=== PATIENT | female | born 1995 ===

== ENCOUNTER 2024-02-01 09:06 | Outpatient (CLI) | payer OTHER, MEDICAID, SELFPAY | END 2024-02-01 09:07 | disposition home or self-care (01) | LOC: NFLDREF 02-20 11:17 | PROVIDERS: Visit Provider Advanced Practice Midwife | DX: Z34.83 Encounter for supervision of other normal pregnancy, third trimester (principal); Z67.40 Type O blood, Rh positive | CPT/HCPCS: 86592; 86762; 86850; 86900; 86901 ==

== ENCOUNTER 2024-02-15 09:59 | Outpatient (CLI) | payer OTHER, MEDICAID, SELFPAY | END 2024-02-15 10:00 | disposition home or self-care (01) | LOC: NFLDREF 10:00 | PROVIDERS: Visit Provider Advanced Practice Midwife | DX: Z34.83 Encounter for supervision of other normal pregnancy, third trimester (principal) | CPT/HCPCS: 86803 ==

== ENCOUNTER 2024-02-28 09:00 | Outpatient (CLI) | payer OTHER, SELFPAY | END 2024-02-28 09:01 | disposition home or self-care (01) | LOC: NFLDREF 03-02 13:49 | PROVIDERS: Visit Provider Advanced Practice Midwife | DX: Z34.83 Encounter for supervision of other normal pregnancy, third trimester (principal); Z3A.35 35 weeks gestation of pregnancy | CPT/HCPCS: 87081; 87653 ==

== ENCOUNTER 2024-03-30 19:35 | Inpatient (IN) | payer OTHER, SELFPAY ==
[2024-03-30] VITALS (19 sets, daily range): BP systolic 104–129; BP diastolic 61–84; PULSE 61–105; RESP 16; TEMP 36.7–37.2; BMI 28.5
--- NOTE | 2024-03-30 19:32 | P.LDBA_ITS ---
Subjective History of Present Illness Date Seen: 03/30/24 Narrative: Patient is being admitted to Labor and Delivery for labor. She is a 28 year old at 40.2 weeks gestation. Her full history and physical was dictated by MICHAEL Walker on 03/06/24. Please see this for details. 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 Unplanned . had vasectomy, but never went in for semen eval. Tx from [place] 1) History of precipitous delivery. : 4 hour labor. 2) Bilateral labial varicose veins: Uses ice packs, discussed vulvar varicosity support bands. Order given for compression panty 3) GBS positive Needs pap smear in post Flu: up to date Covid: Recommended, declines. Labs: 08/23/2023: Antibody: negative Hgb: 13.5 Platelets: 3.27 RPR: Negative HBsAG: Negative HIV: Negative Urine culture: Negative Blood type: O+ Rubella: collected w/ labs here Imagin08/23/2023: Dating Ultrasound: Normal, single IUP, CRL 21.4 mm, measured at 8w5d giving EDC 03/29/2024 FHR 174 11/09/2023: 20 week anatomy Ultrasound: Normal, posterior placenta, no previa, normal ZIA, FHR 146, EFW 59.9%, cervix 4.4 cm. TDAP: 01/18/2024 OB - Problem Based A/P Additional Plan (1) Distress from pain in labor: Status: Acute (2) 40 weeks gestation of : Status: Acute Plan Assessment:?? at 40.2 weeks gestation?? GBS positive? Patient is coping well with challenges of labor.?? Labor type: Spontaneous, Active labor? Category 2 FHR pattern.? complicated by: GBS Positive Hx precipitous labor Bilateral labial varicose veins Plan:?? * ?Admit to L & D? * IV access: SL for antibiotic administration * Monitoring per policy: intermittent?once reactive NST obtained * Candidate for analgesia of choice.? Planning unmedicated * Expectant management at this time * GBS prophylaxis initiated for GBS positive status. Will treat with antibiotics per protocol.? * Patient encouraged to reposition and ambulate to promote physiologic labor and . * Anticipate ? Delivery/Labor/Induction Plan Plan: expectant management OB Exam Physical Exam Vital signs: Temp Pulse BP 98.7 F 105 H 129/84 03/30/24 19:29 03/30/24 19:22 03/30/24 19:22 Narrative: Vitals Reviewed Constitutional:? Alert and oriented x3 HEENT:? Normocephalic, atraumatic Neck:? Supple Lungs:? Clear to auscultation bilaterally Heart:? Regular rate and rhythm, no murmur, rub or gallop Abdomen:? Soft, nontender, and gravid. Vertex by Nahum's, confirmed with cervical exam. Extremities:? No edema or erythema Cervix: 8 cm/100%/+1 station/vertex per RN NST: 140 bpm/moderate variability/no accelerations/no decelerations/moderate contractions Detailed Labor and Delivery Exam Patient Gravid: Yes
[2024-03-30] MEDS: AMPICILLIN 2 GM in 0.9 % SODIUM CHLORIDE Mini-bag 100 ML IVPB (19:45)
[2024-03-30] MEDS: LACTATED RINGERS 1000 ML 1,000 ML 125 ML IV (19:45)
[2024-03-30 19:54] LABS: Basophils Absolute Auto 0.02 K/uL (0.00-0.30); Basophils Percent Auto 0.2 % (0.0-3.0); Eosinophils Absolute Auto 0.07 K/uL (0.00-0.50); Eosinophils Percent Auto 0.7 % (0.0-7.0); Hematocrit 36.8 % (33.0-51.0); Hemoglobin* 11.9 gm/dL (12.0-16.0); Immature Granulocytes Abs Auto 0.02 K/uL (0.00-0.30); Immature Granulocytes Pct Auto 0.2 %; Lymphocytes Absolute Auto 2.42 K/uL (0.90-2.90); Lymphocytes Percent Auto 24.6 % (20-44); Mean Corpuscular HGB Conc 32 gm/dL (32-36); Mean Corpuscular Hemoglobin 31 pg (26-34); Mean Corpuscular Volume 94 fL (80-100); Monocytes Percent Auto 6.8 % (0.0-11.0); Neutrophils Absolute Auto 6.64 K/uL (1.7-7.0); Neutrophils Percent Auto 67.5 % (42.0-72.0); Platelet Count* 293 K/uL (140-440); RDW Coefficient of Variation % 12.9 % (11.5-15.5); White Blood Count* 9.84 K/uL (4.50-11.00)
[2024-03-30 19:55] LABS: Slide Review Reflex No
[2024-03-30] MEDS: OXYTOCIN 10 UNIT/ML INJ IM (20:55)
[2024-03-30] MEDS: ACETAMINOPHEN 500 MG TABLET 1000 MG PO (21:49)
--- NOTE | 2024-03-30 22:45 | W.PM.OBVAGDE ---
OB Procedure Vag Delivery Mother Details Mother Details: The patient is a 28 year-old, 5, Para 4, admitted on 03/30/24 at 40.2Days gestation. : 5 Para: 5 Weeks Gestation: 40.2 Admission Date: 03/30/24 Additional Details Amniotic Membrane Status: SROM Amniotic Membrane Rupture Date: 03/30/24 Amniotic Membrane Rupture Time: 20:35 Amniotic Membrane Fluid Description: Clear Analgesia/Anesthesia Type: None Waterbirth: Yes Pitcoin: Yes (IM for AMTSL) Labor Onset: 17:30 Complete: 20:30 Pushin:31 Heart: heart tones during second stage were not monitored as second stage was 4 minutes. Delivery Details Delivery Date: 03/30/24 Delivery Time: 20:35 Route of delivery: Gender: Female Infant Viability: Alive; Heart Rate Present Position at Delivery: OA Delivery Details: 28?y.o?at 40.2 weeks.? Rema arrived in labor at 8cm. She was moved to the waterbirth room and while to tub was filling she labored on hands and knees on the bed. She entered the tub around 2014?and progressed normally, she was assumed complete with pushing. She pushed effectively and delivered a viable female infant, SROM at time of delivery with clear fluid. ? She became complete at 2029.??She pushed in multiple positions effectively.? Spontaneous vaginal delivery at 2034 of?a viable? female infant.??Delivered in vertex OA position.??Shoulders delivered easily.?There was a nuchal cord times 2, delivered through. Spontaneous cry noted.?? placed on maternal abdomen.??Cord?was clamped and cut after a 5+ minute delay.??Nose and mouth were bulb suctioned.? Shoulder dystocia: no? Nuchal cord: yes times 2? Meconium stained?fluid: no? Water : yes? ? ? 5 at 1 minute and 8 at 5 minutes.? Weight is pending. ? Placenta delivered spontaneously and?complete?at 2048 with a?3 vessel?cord.??There were trailing membranes noted that were teased out slowly with a ring forceps. Difficult to tell if all tissue was delivered as membranes were shredded and part had detached from the main bag while patient transferred to the bed. Bleeding controlled with fundal massage and?pitocin?for AMTSL.? ? Mother and infant were stable after delivery.? ? Lacerations:? none. ? Bleeding?post delivery?was: minimal. ?The fundus was firm to palpation.? Blood loss: 250?mL.? Blood loss measurement type: QBL? ? ? Sponge,?lap?and needles counts are correct.? Mother and infant were stable after delivery.? 1 Minute Interval Total Score: 5 5 Minute Interval Total Score: 8 Additional Details Shoulder Dystocia: No Placenta Delivery Time: 20:49 Placental Delivery Description: Spontaneous Procedure Done: Global Blood Loss: 250 Laceration: None Blood Loss Measurement Type: QBL Bakri Used: No Sponge/Need Count Correct: Yes Event Summary Status: Mother and were stable after delivery. Disposition: floor
[2024-03-31] MEDS: IBUPROFEN 600 MG TABLET PO ×3 (02:57→20:40)
[2024-03-31 03:02] VITALS: BP 107/67; PULSE 84; RESP 12; TEMP 36.5
--- NOTE | 2024-03-31 08:01 | P.OBPN_ITS ---
OB - PN:Subj Subjective Date Seen: 03/31/24 Patient comments OB post-: no complaints, pain well controlled, tolerating diet and flatus present Clutier status: and doing well Clutier feeding status: exclusively Narrative: Day 1:? Vaginal Delivery at 40 and 2/7 weeks.? ?? Complications:? GBS+ not adequately treated in labor? The patient feels well.? Her pain is well controlled with current medications.? She has no new complaints.? Urinary output is adequate and she is voiding without difficulty.? Has a good appetite, is tolerating a general diet, is passing flatus, and has not yet had a bowel movement.? Has scant amount of rubra lochia.? She is ambulating well.?She is and states that baby is feeding like a champ and denies concerns at this time. Anticipate discharge home tomorrow. She had desired discharge home today but she did not have time to be adequately treated for GBS. She is understanding that the recommendation is for baby to stay for 36-48 hours and will plan to stay as well. Plan for discharge home tomorrow morning. OB - PN: Obj Exam Physical Exam: Vital signs: Temp Pulse Resp BP 97.7 F 84 12 107/67 03/31/24 03:02 03/31/24 03:02 03/31/24 03:02 03/31/24 03:02 Narrative: GENERAL APPEARANCE:? normal affect, alert, no distress? MOOD:? appropriate? CHEST:? clear to auscultation and percussion? HEART:? regular rate and rhythm? ABDOMEN:? soft, non-tender the uterine fundus is U/2 and is appropriate for the stage of recovery.? PERINEUM:? mild edema of the perineum, there is a intact perineum that is healing well.? EXTREMITIES:? normal and no edema? OB - PN: Obj Data Labs Labs: Laboratory Results - last 24 hr 03/30/24 19:30 WBC 9.84 RBC 3.90 L Hgb 11.9 L Hct 36.8 MCV 94 MCH 31 MCHC 32 RDW Coeff of Edward 12.9 Plt Count 293 Neut % (Auto) 67.5 Lymph % (Auto) 24.6 [place] % (Auto) 6.8 Eos % (Auto) 0.7 Baso % (Auto) 0.2 Neut # (Auto) 6.64 Lymph # (Auto) 2.42 [place] # (Auto) 0.70 Eos # (Auto) 0.07 Baso # (Auto) 0.02 Abs Immat Gran (auto) 0.02 Imm/Tot Granulo (auto) 0.2 Blood Type O Positive Antibody Screen NEGATIVE OB - PN: A/P Delivery Assessment and Plan (1) Lactating mother: Status: Acute (2) care following vaginal delivery: Status: Acute Plan day: 1 Plan: routine care Comments: Anticipate discharge home tomorrow.
[2024-03-31 08:38] VITALS: BP 113/66; PULSE 71; RESP 16; TEMP 36.7; O2SAT 98
[2024-03-31] MEDS: DOCUSATE SODIUM 100 MG CAPSULE PO (08:49)
[2024-03-31] MEDS: ACETAMINOPHEN 500 MG TABLET 1000 MG PO ×3 (08:49→23:46)
[2024-03-31 11:59] VITALS: BP 102/67; PULSE 75; RESP 16; TEMP 36.5; O2SAT 97
[2024-03-31 16:51] VITALS: BP 118/78; PULSE 74; RESP 16; TEMP 36.5; O2SAT 97
[2024-03-31 21:30] VITALS: BP 107/68; PULSE 69; RESP 16; TEMP 36.6; O2SAT 96
[2024-04-01] MEDS: IBUPROFEN 600 MG TABLET PO ×2 (03:16→09:20)
[2024-04-01 06:00] VITALS: BP 108/69; PULSE 69; RESP 16; TEMP 36.7; O2SAT 95
[2024-04-01] MEDS: ACETAMINOPHEN 500 MG TABLET 1000 MG PO (06:20)
--- NOTE | 2024-04-01 07:58 | P.DS_ITS ---
Documented by User: Katey Shaw CNM 04/01/24 08:17 DS: Providers Provider Date Seen: 04/01/24 Date of admission: 03/30/24 19:35 Primary care physician: Lucy Oscar MD Admitting Clinician: Florencia Gifford CNM Attending Physician on discharge: Katey Shaw CNM Date of Discharge: 04/01/24 DS: Diagnosis Discharge Diagnosis (1) care following vaginal delivery: Status: Acute (2) Lactating mother: Status: Acute Exam Narrative: Exam Narrative: GENERAL APPEARANCE:? normal affect, alert, no distress? MOOD:? appropriate? CHEST:? clear to auscultation and percussion? HEART:? regular rate and rhythm? ABDOMEN:? soft, non-tender the uterine fundus is 2 below the umbilicus and is appropriate for the stage of recovery.? PERINEUM:? intact and not painful, not examined.? EXTREMITIES:? normal and no edema? Const: Vital Signs, click to edit/add: Vital Signs - 24 hr 03/31/24 08:38 03/31/24 11:59 03/31/24 16:51 Temperature 98.1 F 97.7 F 97.7 F Pulse Rate [Blood Pressure Cuff] 71 75 74 Respiratory Rate 16 16 16 Blood Pressure [Le ft Arm] 113/66 102/67 118/78 Pulse Oximetry 98 97 97 Oxygen Delivery Me thod Room Air Room Air Room Air 03/31/24 21:30 04/01/24 06:00 Temperature 97.9 F 98.0 F Pulse Rate [Blood Pressure Cuff] 69 69 Respiratory Rate 16 16 Blood Pressure [Le ft Arm] 107/68 108/69 Pulse Oximetry 96 95 Oxygen Delivery Me thod Room Air Room Air OB - DS: Summary Hospital Course Hospital Course: The patient is a 28 year old G 5 P 5 at 40 2/7 weeks gestation that was admitted to the Center on 03/30/24 for active labor. She had an uncomplicated vaginal delivery with no lacerations. She delivered a viable female infant. She is breast feeding. the patient has done well. Patient has no complaints? No active bleeding?? Doing well? Planning Tubal ligation since this was due to failed vasectomy. She would like a tubal ligation, but not prior to discharge today. She previously signed a consent 02/19/2024. She is requesting discharge home.? Peripartum Data delivery method: Vaginal Laceration description: None complications: none [place] Gender: Female Status at Discharge Functional status at discharge: independent ambulation Overall status at discharge: patient is progressing back to baseline Time Spent with Patient Time attestation: Total time spent providing and/or coordinating discharge services: Time spent: Less than 30 minutes Discharge Plan Discharge Disposition: Home, Self-Care Date of Admission: 03/30/24 19:35 Attending Provider on Discharge: Katey Shaw Primary Care Provider: Lucy Oscar Condition: Stable Anticipated Discharge Date/Time: 04/01/24 12:00 Discharge Medications: New docusate sodium 100 mg Capsule 100 mg PO DAILY Qty: 60 0RF ibuprofen 600 mg Tablet 600 mg PO Q6H PRNQty: 60 0RF acetaminophen 500 mg Tablet 1,000 mg PO Q6H PRN (Reason: pain) Qty: 60 0RF Continued omega-3 fatty acids-fish oil [Fish Oil] 360-1,200 mg capsule 1 cap PO QDAY DHA 200 mg capsule 200 mg PO DAILY PRN (DME) compression panty,small-medium Misc See Rx Instructions .Route Qty: 1 0RF Rx Instructions: As directed Discharge Orders: Discharge Order (Routine); Ordered 04/01/24 Ordered By: Keisha Capone Patient Education: OB Vaginal/Breast Feeding Additional Instructions: Discharge instructions were reviewed with the patient including signs and symptoms of infection and home going medications Nothing vaginally for 6 weeks: no tampons or intercourse Do not drive while taking narcotic pain medication(s) Off Work or School for 6 weeks Symptoms to report to doctor: * Bleeding that saturates more than one pad per hour * Passing clots larger than the size of a golf ball * Pain not relieved by prescribed medication * Fever above 100.4 degrees Fahrenheit * A foul vaginal odor * Difficulty in emotions, mood, and functions * Thoughts of hurting yourself and/or * Painful, reddened area in your breast * Any drainage, redness, or tenderness in your IV/epidural site * Severe headache that doesn't improve after taking medications * Changes in vision, including temporary loss of vision, blurred vision, and/or light sensitivity * Upper abdominal pain (usually under ribs on the right side) * Decrease in urination or painful, frequent urinating * Chest pain * Shortness of breath * Tenderness or pain with redness and/swelling in the calf(s) of your leg 2-week visit: discuss infant feeding concerns, review control options and screen for anxiety/depression. 6-week visit for an annual exam. consultation services are available to all mothers and babies for the first year after delivery.? To make an appointment, please call [phone]. Activity Level: No Restrictions and Activity as Tolerated Discharge Diet: Regular Follow Up Appointments: [facility] [Provider Group] Forms: [facility] Info Instructions Documented by User: Keisha Capone CNM 04/01/24 09:47 DS: Diagnosis Discharge Diagnosis (1) care following vaginal delivery: Status: Acute (2) Lactating mother: Status: Acute Exam Const: Documenting provider has reviewed patient's vital signs: yes OB - DS: Summary Hospital Course Hospital Course: The patient is a 28 year old G 5 P 5 at 40 2/7 weeks gestation that was admitted to the Center on 03/30/24 for active labor. She had an uncomplicated vaginal delivery with no lacerations. She delivered a viable female . She is breast feeding. the patient has done well. Her pain is well controlled with current medications.? She has no new complaints.? Urinary output is adequate and she is voiding without difficulty.? Has a good appetite, is tolerating a general diet, is passing flatus, and has not had a bowel movement.? Has scant amount of rubra lochia.? She is ambulating well. Patient has no complaints? No active bleeding?? Doing well? Planning Tubal ligation since this was due to failed vasectomy. She would like a tubal ligation, but not prior to discharge today. She previously signed a consent 02/19/2024. Discussed that could have tubal either before discharge or after 6 weeks. She would like to wait until after 6 weeks. Discussed that she should see an MD for her 6 week visit if she has questions or would like to discuss further about a tubal and she could schedule for anytime after 6 weeks. Will do H&P at 6 week PP visit for a tubal if she still desires this procedure. She is requesting discharge home.? [place] Infant Discharge Plan: Home Discharge Plan Discharge Disposition: Home, Self-Care Date of Admission: 03/30/24 19:35 Attending Provider on Discharge: Katey hSaw Primary Care Provider: Lucy Oscar Condition: Stable Anticipated Discharge Date/Time: 04/01/24 12:00 Discharge Medications: New docusate sodium 100 mg Capsule 100 mg PO DAILY Qty: 60 0RF ibuprofen 600 mg Tablet 600 mg PO Q6H PRNQty: 60 0RF acetaminophen 500 mg Tablet 1,000 mg PO Q6H PRN (Reason: pain) Qty: 60 0RF Continued omega-3 fatty acids-fish oil [Fish Oil] 360-1,200 mg capsule 1 cap PO QDAY DHA 200 mg capsule 200 mg PO DAILY PRN (DME) compression panty,small-medium Misc See Rx Instructions .Route Qty: 1 0RF Rx Instructions: As directed Discharge Orders: Discharge Order (Routine); Ordered 04/01/24 Ordered By: Keisha Capone Patient Education: OB Vaginal/Breast Feeding Additional Instructions: Discharge instructions were reviewed with the patient including signs and symptoms of infection and home going medications Nothing vaginally for 6 weeks: no tampons or intercourse Do not drive while taking narcotic pain medication(s) Off Work or School for 6 weeks Symptoms to report to doctor: * Bleeding that saturates more than one pad per hour * Passing clots larger than the size of a golf ball * Pain not relieved by prescribed medication * Fever above 100.4 degrees Fahrenheit * A foul vaginal odor * Difficulty in emotions, mood, and functions * Thoughts of hurting yourself and/or * Painful, reddened area in your breast * Any drainage, redness, or tenderness in your IV/epidural site * Severe headache that doesn't improve after taking medications * Changes in vision, including temporary loss of vision, blurred vision, and/or light sensitivity * Upper abdominal pain (usually under ribs on the right side) * Decrease in urination or painful, frequent urinating * Chest pain * Shortness of breath * Tenderness or pain with redness and/swelling in the calf(s) of your leg 2-week visit: discuss feeding concerns, review control options and screen for anxiety/depression. 6-week visit for an annual exam. consultation services are available to all mothers and babies for the first year after delivery.? To make an appointment, please call [phone]. Activity Level: No Restrictions and Activity as Tolerated Discharge Diet: Regular Follow Up Appointments: [facility] [Provider Group] Forms: [employer] Info Instructions
[2024-04-01 09:13] VITALS: BP 112/73; PULSE 89; RESP 16; TEMP 36.3; O2SAT 97
[2024-04-01] MEDS: DOCUSATE SODIUM 100 MG CAPSULE PO (09:20)
[2024-04-01 16:59] LABS: Rapid Plasma Reagin (RPR) Non Reactive (Non Reactive)
== END 2024-04-01 10:30 | disposition home or self-care (01) | DRG 560 ==
LOC: OB OUT 19:37 → OB 19:37
PROVIDERS: Admitting Provider Advanced Practice Midwife; Visit Provider Advanced Practice Midwife
DX: O99.824 Streptococcus B carrier state complicating childbirth (principal); Z3A.40 40 weeks gestation of pregnancy; O22.13 Genital varices in pregnancy, third trimester; Z37.0 Single live birth
CPT/HCPCS: 36415; 85025; 86592; 86850; 86900; 86901; A9270; J0290; J2590; J7120

== ENCOUNTER 2024-07-23 07:44 | Day surgery (SDC) | payer OTHER, SELFPAY ==
[2024-07-23] VITALS (14 sets, daily range): BP systolic 104–121; BP diastolic 62–83; PULSE 44–66; RESP 12–20; TEMP 36.1–36.8; O2SAT 94–98; BMI 27.7
--- OUTSIDE RECORDS SUMMARY | 2024-07-23 07:45 | XMS_ITS | Referral Summary ---
Author Organization [facility] Address [address] [place] [address] Care Team Providers Care Day Guard Name Role Phone Amy Fam M.D. Primary Care Provider [phone] Source Comments Patient records contain information from all sites at [facility]. For routine questions regarding patient records, call [phone] during business hours, M-F 8:00 AM - 5:00 PM Central Time. Record requests for emergency care only can be directed to [phone] at any time.[facility] Encounters Date Type Department Care Team Description 07/09/2024 1:30 PM CDT Office Visit Department of Family Medicine, [facility], in [place], [place] [address] [place] [address] Aubrey Munoz, GWENDOLYN, C.N.P. Preoperative Exam (Primary Dx) from Last 3 Months Allergies No known active allergies Medications Medication Sig Dispensed Refills Start Date End Date Status vits96/iron fum/folic ( vitamin-ferrous fumarate-FA) 27 mg iron- 800 mcg per tablet Take 1 tablet by mouth daily. Active triamcinolone (KENALOG) 0.1 % creamIndications:Ecz monique Dyshidrotic Apply to affected area 1-2 times daily as needed for dyshidrotic eczema 60 g 1 10/31/2023 Active Additional Information Patient not taking.Reported on 07/09/2024 Active Problems Patient Care Coordination No te Formatting of this note migh t be different from the original. [facility] circumcision waiver signed. Problem Noted Date Diagnosed Date Encounter For Supervision Of Other Normal Unspecified Trimester 11/27/2023 Overview (11/27/2023): O positive Rubella equivocal last , MMR given in 2020 and 2021, no further indicated NSVDx4 Considering [facility] versus [facility] Resolved Problems Problem Noted Date Diagnosed Date Resolved Date Need Vaccine Immunization Me asles Mumps And Rubella 05/01/2022 11/27/2023 Overview (11/27/2023): , given 06/02/22 Encounter For Supervision Of Normal Unspecified Trimester 02/09/2022 11/27/2023 Overview (05/15/2022): G 4 P 3, x3 (missael cerrato rafe) JASKARAN: June 01, 2022 by LMP and FTU FOB: Jovanny Rubella equivocal, Rh O positive anatomy scan: normal anatomy OGTT: pass 76 Hb at 28 weeks: 10.8 Tdap on: 03-13 GBS: negative control: Vasectomy Issues: 1. Low risk 2. MMR vaccine Encounter For Supervision Of Normal Unspecified Trimester 06/22/2020 12/22/2021 Overview (11/15/2020): G 3 P 2, x2 both by GG JASKARAN: December 04, 2020 by LMP and FTU FOB: Jovanny Rubella equivocal, Rh O-positive anatomy scan: Normal Nest Packet given on: OGTT: 76 Hb at 28 weeks: 12.0 Influenza on: Plans to obtain at work Tdap on: 09/13/2020 Rhogam?: No GBS: negative COVID Testing: PP contraception plans: Issues: 1. Rubella equivocal, needs MMR Encounter For Supervision Of Normal Unspecified Trimester 01/27/2019 05/25/2020 Overview (01/27/2019): , previous at 39 weeks ? Raj? Immunizations Name Administration Dates Next Due 4vHPV (discontinued) 05/18/2017 9vHPV 05/18/2017 DTP 05/14/2001 DTaP (Infanrix, Tripedia) 07/08/2008,05/14/2001 DTaP / Hib 06/30/1997, 7,1996,1995 HepB Pediatric/Adolescent 03/31/1997,1996, 1996 IPV 05/14/2001, 1,1996,1995,1996 Influenza, Injectable, Mdck, Preservative Free, Quadrivalent 10/30/2019 Influenza, Unspecified 09/18/2012 MCV4 (Menactra)(Discontinued) 07/08/2008 MCV4, Unspecified 07/08/2008 MMR 06/02/2022, 1,05/14/2001,2000,06/30/1997 SARS-COV-2 (COVID-19) - PFIZ ER (Discontinued)(12 years or older) 07/13/2021,06/21/2021 Tdap 03/13/2022, 0,04/21/2019,2007 LAXMI 02/26/2017 influenza vaccine quad (FLUZONE/FLUARIX) (6 months and older)(PF) 08/24/2023,08/17/2021,10/13/2020,2017 Social History Tobacco Use Types Packs/Day Years Used Date Smoking Tobacco: Never Smokeless Tobacco: Never Tobacco Cessation:Counseling Given: Not Answered Alcohol Use Standard Drinks/Week Comments No 0 (1 standard drink = 0.6 oz pur e alcohol) Prior:occ Humiliation, Afraid, Rape, and Kick questionnair e Answer Date Recorded Within the last year, have y ou been afraid of your partner or ex-partner? No 02/09/2022 Within the last year, have y ou been humiliated or emotionally abused in other ways by your partner or ex-partner? No Within the last year, have y ou been kicked, hit, slapped, or otherwise physically hurt by your partner or ex-partner? No 02/09/2022 Within the last year, have y ou been raped or forced to have any kind of sexual activity by your partner or ex-partner? No 02/09/2022 Social Connection and Isolat ion Panel [NHANES] Answer Date Recorded In a typical week, how many times do you talk on the phone with family, friends, or neighbors? More than three times a week 02/09/2022 How often do you get togethe r with friends or relatives? Once a week 02/09/2022 How often do you attend chur ch or yarsanism services? Patient declined 02/09/2022 Do you belong to any clubs o r organizations such as muslim groups, unions, fraternal or athletic groups, or school groups? Patient declined 02/09/2022 How often do you attend meet ings of the clubs or organizations you belong to? Patient declined 02/09/2022 Are you , , di vorced, , never , or living with a partner? 02/09/2022 AUDIT-C Answer Date Recorded Q1: How often do you have a drink containing alc ohol? Never 02/09/2022 Average Number of Drinks Not on file 022 Frequency of Binge Drinking Not on file 01/21 Overall Financial Resource Strain (CARDIA) Answe r Date Recorded How hard is it for you to pa y for the very basics like food, housing, medical care, and heating? Not hard at all 08/24/2023 PHQ-2 Answer Date Recorded PHQ-2 Score 0 07/09/2024 [facility] - Occupational Stress Questionnaire Answer Date Recorded Do you feel stress - tense, restless, nervous, or anxious, or unable to sleep at night because your mind is troubled all the time - these days? Not at all 02/09/2022 Exercise Vital Sign Answer Date Recorde d On average, how many days pe r week do you engage in moderate to strenuous exercise (like a brisk walk)? 3 days 08/24/2023 On average, how many minutes do you engage in exercise at this level? 20 min 08/24/2023 Hunger Vital Sign Answer Date Recorded Within the past 12 months, y ou worried that your food would run out before you got the money to buy more. Never true 08/24/20 23 Within the past 12 months, t he food you bought just didn't last and you didn't have money to get more. Never true 08/24/2023 PRAPARE - Transportation Answer Date Re corded In the past 12 months, has l ack of transportation kept you from medical appointments or from getting medications? No 12/2022 In the past 12 months, has l ack of transportation kept you from meetings, work, or from getting things needed for daily living? No 08/24/2023 Depression Answer Date Recor ded PHQ-9 Total Score (max 27) 0 03/13 Nutrition Answer Date Recorded On average, how many serving s of fruits and vegetables do you eat per day (serving size is equal to 1 cup or approximately the size of a tennis ball)? 3-5 08/24/2023 Dental Answer Date Recorded Dental: Regular Dentist Yes 02/10/20 Employment Answer Date Recorded Employment status Employed and actively working without restrictions 08/24/2023 Housing Stability Answer Date Recorded What is your living situation today? I have a [facility] place to live 08/24/2023 Education Answer Date Recorded What is the highest level of school you have completed or the highest degree you have received? Associate degree: academic program 04/21/2019 Sex and Gender Information Value Date Recorded Sex Assigned at Female 04/16/2018 2:29 PM CDT Gender Identity Female 04/16/2018 2:29 PM CDT Sexual Orientation Straight 04/16/2018 2: 29 PM CDT Last Filed Vital Signs Vital Sign Reading Time Taken Comments Blood Pressure 107/71 07/09/2024 1:00 PM CDT Pulse 58 07/09/2024 1:00 PM CDT Temperature 36.3 ??C (97.4 ??F) 08/24/2023 7:57 AM CD T Respiratory Rate 16 11/27/2023 8:28 AM FUND CONTROLLER Oxygen Saturation - - Inhaled Oxygen Concentration - - Weight 73.3 kg (161 lb 9.6 oz) 07/09/2024 1:00 P M CDT Height 164 cm (5' 4.57) 07/09/2024 1:00 PM CDT Body Mass Index 27.25 07/09/2024 1:00 PM CDT Plan of Treatment Not on file Medical Devices Implanted Type [facility] Sales Device Identifier Shelf Expiration Date Model / Serial / Lot Intrauterine Device- 8 Implanted:01/15 (Quantity not on file) Intrauterine Device Uterus Procedures Procedure Name Priority Date/Time Associated Diagnosis Comments HCV AB SCRN , S Routine 08/23/2023 9:27 AM CDT Encounter For Supervision Of Other Normal Unspecified Trimester (HCC) HIV-1/-2 AG AND AB SCRN, PLASMA Routine 08/23/2023 9:27 AM CDT Encounter For Supervision Of Other Normal Unspecified Trimester (HCC) CHLAMYDIA/GONORRHOE AE AMPLIFIED RNA Routine 05/25/2020 4:10 PM CDT Encounter For Supervision Of Other Normal Unspecified Trimester THINPREP W/HPV CO-TEST SCREEN Routine 05/25/2020 4:10 PM CDT Encounter For Supervision Of Other Normal Unspecified Trimester from Last 3 Months or Most Recently Relevant to Health Maintenance Results * Hepatitis C Virus Antibody Screen (08/23/2023 9:27 AM CDT) HCV Ab Scrn , S Negative Negative 08/24/2023 9:14 AM CDT [facility] Comment:Sswelr-fj-oeedny rat io is <1.00. Blood (Blood, Venous) 08/23/2023 9:27 AM CDT 08/24/2023 7:20 AM CDT Lucy Oscar M.D. LAB MICROBIOLOGY - BLOOD ORDERABLES [facility] [address] [place] [address] [facility] [address] [place] [address] * HIV-1/-2 Ag and Ab Scrn, Plasma (08/23/2023 9:27 AM CDT) HIV Ag/Ab Scrn, P Negative Negative 08/27/2023 5:32 AM FUND CONTROLLER [facility] Comment: Negative result does not rule out HIV infection. If exposure to HIV infection occurred <14 days ago, contact the laboratory to request addition of HIV-1/HIV-2 RNA detection , Plasma (HPP12). HIV-1 p24 Ag Scrn, P Negative Negative 08/27/2023 5:32 AM FUND CONTROLLER [facility] Comment: Negative result does not rule out HIV infection. If exposure to HIV infection occurred <14 days ago, contact the laboratory to request addition of HIV-1/HIV-2 RNA detection , Plasma (HPP12). HIV-1 Ab Scrn, P Negative Negative 08/27/2023 5:32 AM FUND CONTROLLER [facility] Comment: Negative result does not rule out HIV infection. If exposure to HIV infection occurred <14 days ago, contact the laboratory to request addition of HIV-1/HIV-2 RNA detection , Plasma (HPP12). HIV-2 Ab Scrn, P Negative Negative 08/27/2023 5:32 AM FUND CONTROLLER [facility] Comment: Negative result does not rule out HIV infection. If exposure to HIV infection occurred <14 days ago, contact the laboratory to request addition of HIV-1/HIV-2 RNA detection , Plasma (HPP12). Blood (Blood, Venous) 08/23/2023 9:27 AM CDT 08/26/2023 1:02 PM FUND CONTROLLER Lucy Oscar M.D. LAB MICROBIOLOGY - BLOOD ORDERABLES [facility] [address] [place] [address], [facility] [place] [address] * ThinPrep w/HPV Co-Test Screen (05/25/2020 4:10 PM CDT) 05/31/2020 6:59 AM CDT [facility] Report electronically signed by MARYCHUY Benitez(ASCP) I verify that I have examined all relevant slides/materials for the specimen(s) and rendered or confirmed the diagnosis. 05/31/2020 6:59 AM CDT [facility] Gross Description Received specimen in a ThinPrep vial. 05/31/2020 6:59 AM CDT [facility] Pap Test Source Cervical/Endocervi iraj 05/31/2020 6:59 AM CDT [facility] Clinical History 05/31/20 20 6:59 AM CDT [facility] Menstrual Status(LMP, PM, ) 05/31/2020 6:59 AM CDT [facility] Hormone Therapy/Contracep tives 05/31/2020 6:59 AM CDT [facility] Interpretation Cervical/Endocervi iraj ??(ThinPrep): Satisfactory for Evaluation Negative for Intraepithelial Lesion or Malignancy Shift in juan suggestive of bacterial vaginosis High Risk HPV: ??Negative Negative for High Risk HPV by nucleic acid amplification. The following High Risk HPV types were not detected: 16, 18, 31, 33, 35, 39, 45, 51, 52, 56, 58, 59, 66, and 68. 05/31/2020 6:59 AM CDT [facility] Varies (Cervix/Endocerv ix) 05/25/2020 4:10 PM CDT 05/26/2020 7:14 AM CDT Carlos Enrique Suazo M.D. LAB PAP PATHDX ORDER SUJATHA Performing Organization Address City/[facility] Co de Phone Number [facility] [address] [place] [address], [facility] [address] [place] [address] * Chlamydia / Gonorrhoeae Amplified RNA (05/25/2020 4:10 PM CDT) Source Swab, Cervix/Endoc ervix 05/26/2020 1:30 PM CDT [facility] Chlamydia trachomatis amplified RNA Negative Negative 05/26/2020 1:30 PM CDT [facility] Source Swab, Cervix/Endoc ervix 05/26/2020 1:30 PM CDT [facility] Neisseria gonorrhoeae amplified RNA Negative Negative 05/26/2020 1:30 PM CDT [facility] Varies (Cervix/Endocerv ix) 05/25/2020 4:10 PM CDT 05/25/2020 7:18 PM CDT Carlos Enrique Suaoz M.D. LAB MICROBIOLOGY - G ENERAL ORDERABLES Performing Organization Address City/[facility] Co de Phone Number [facility] [address] [place] [address], [facility] in [place] [address] [place] [address] from Last 3 Months or Most Recently Relevant to Health Maintenance Care Teams Day Guard Relationship Specialty Start Date End Date Amy Fam M.D. [address] [phone] PCP - General Family Medicine 06/24/24
--- OUTSIDE RECORDS SUMMARY | 2024-07-23 07:45 | XMS_ITS ---
Author Organization [facility] Address [address] [place] [address] Care Team Providers Care Power Ballast Machine Operator Name Role Phone Unavailable Unavailable Unavailable Surgery Details Not on file Complications Check Surgery Details section. Procedure Estimated Blood Loss Check Surgery Details section. Procedure Findings Check Surgery Details section. Procedure Specimens Taken Check Surgery Details section.
--- OUTSIDE RECORDS SUMMARY | 2024-07-23 07:45 | XMS_ITS | Clinical Summary ---
Author Organization [facility] Address [address] [place] [address] Care Team Providers Care Inverted Block Operator Name Role Phone Amy Fam M.D. Primary Care Provider Source Comments Patient records contain information from all sites at [facility]. For routine questions regarding patient records, call [phone] during business hours, M-F 8:00 AM - 5:00 PM Central Time. Record requests for emergency care only can be directed to [phone] at any time.[facility] Allergies No known active allergies Medications Medication [...] migh t be different from the original. [facility] circumcision waiver signed. Problem Noted Date Diagnosed Date Encounter For Supervision Of Other Normal Unspecified Trimester 11/27/2023 Overview (11/27/2023): O positive Rubella equivocal last , MMR given in 2020 and 2021, no further indicated NSVDx4 Considering [facility] [place] [facility] [place] Resolved Problems Problem Noted Date Diagnosed Date [...] , previous at 39 weeks ? Raj? Encounters Date Type Department Care Team Description 07/09/2024 1:30 PM CDT Office Visit Department of Family Medicine, [facility], in [place], [place] [address] [address] Aubrey Munoz, INFORMATION SYSTEMS CONSULTANT, C.N.P. Preoperative Exam (Primary Dx) from Last 3 Months Immunizations Name Administration Dates Next Due 4vHPV [...] quad (FLUZONE/FLUARIX) (6 months and older)(PF) 08/24/2023,08/17/2021,10/13/2020,2017 Family History Medical History Relation Name Comments Alcohol abuse Father Intellectual Disability Sister Relation Name Status Comments Father Sister Social History Tobacco Use Types Packs/Day Years [...] 02/09/2022 How often do you attend chur or caodaism services? Patient declined 02/09/2022 Do you belong to any clubs o r organizations such as protestant groups, unions, fraternal or athletic groups, or [...] Answer Date Recorded PHQ-2 Score 0 07/09/2024 [facility] - Occupational Stress Questionnaire Answer Date Recorded [...] your living situation today? I have a [facility] place to live 08/24/2023 Education Answer Date [...] T Respiratory Rate 16 11/27/2023 8:28 AM CONSULTANT DIETITIAN Oxygen Saturation - - Inhaled Oxygen Concentration - - Weight 73.3 kg (161 lb 9.6 oz) 07/09/2024 1:00 P M CDT Height 164 cm (5' 4.57) 07/09/2024 1:00 PM CDT Body Mass Index 27.25 07/09/2024 1:00 PM CDT Plan of Treatment Health Maintenance Due Date Last Done Comments Varicella Vaccines (2 of 2 - 13+ 2-dose series) 03/26/2017 02/26/2017 HPV Vaccines (2 - 3-dose series) 06/15/2017 05/18/2017, 05/18/2017 Cervical Cancer Screening 05/25/2023 05/25/2020, 01/2020 COVID-19 Vaccine (3 - season) 2024 07/13/2021, 06/21/2021 Influenza Vaccine (#1) 2024 , 08/17/2021, 10/13/2020, Additional history exists DTaP,Tdap,and Td Vaccines (12 - Td or Tdap) 01/17/2034 01/18/2024, 03/13/2022, 09/13/2020, Additional history exists Hepatitis B Vaccines Completed 03/31/1997, 1996, 1996 Chlamydia and Gonorrhea Screening Discontinued 05/25/2020, 12/02/2018, 07/17/2012 HIV Screening Completed 08/23/2023, 01/2020, 01/14/2019, Additional history exists Hepatitis C Screening Completed 08/23/2023 Depression Screening (Annual PHQ-2) Completed 07/09/2024, 07/09/2024 Pneumococcal vaccine (0-64 years) Aged Out No longer eligible based on patient's age to complete this topic Medical Devices Implanted Type Area Rn Orthopaedic Device Identifier Shelf Expiration Date Model / [...] S Negative Negative 08/24/2023 9:14 AM CDT [facility] Comment:Hsfaaj-pn-embypx rat io is <1.00. Blood (Blood, Venous) 08/23/2023 9:27 AM CDT 08/24/2023 7:20 AM CDT Lucy Oscar M.D. LAB MICROBIOLOGY - BLOOD ORDERABLES [facility] [address] [place] [address] [facility] [address] [place] [address] * HIV-1/-2 Ag and Ab Scrn, Plasma (08/23/2023 9:27 AM CDT) HIV Ag/Ab Scrn, P Negative Negative 08/27/2023 5:32 AM CONSULTANT DIETITIAN [facility] Comment: Negative result does not rule out HIV infection. If exposure to HIV infection occurred <14 days ago, contact the laboratory to request addition of HIV-1/HIV-2 RNA detection , Plasma (HPP12). HIV-1 p24 Ag Scrn, P Negative Negative 08/27/2023 5:32 AM CONSULTANT DIETITIAN [facility] Comment: Negative result does not rule out HIV infection. If exposure to HIV infection occurred <14 days ago, contact the laboratory to request addition of HIV-1/HIV-2 RNA detection , Plasma (HPP12). HIV-1 Ab Scrn, P Negative Negative 08/27/2023 5:32 AM CONSULTANT DIETITIAN [facility] Comment: Negative result does not rule out HIV infection. If exposure to HIV infection occurred <14 days ago, contact the laboratory to request addition of HIV-1/HIV-2 RNA detection , Plasma (HPP12). HIV-2 Ab Scrn, P Negative Negative 08/27/2023 5:32 AM CONSULTANT DIETITIAN [facility] Comment: Negative result does not rule out HIV infection. If exposure to HIV infection occurred <14 days ago, contact the laboratory to request addition of HIV-1/HIV-2 RNA detection , Plasma (HPP12). Blood (Blood, Venous) 08/23/2023 9:27 AM CDT 08/26/2023 1:02 PM CONSULTANT DIETITIAN Lucy Oscar M.D. LAB MICROBIOLOGY - BLOOD ORDERABLES [facility] [address] [place] [id number], [facility] [place] in [address] [address] * ThinPrep w/HPV Co-Test Screen (05/25/2020 4:10 [...] PAP PATHDX ORDER SUJATHA Performing Organization Address City/[facility] Co de Phone Number [facility] [address] [place] [phone], [facility] [place] [facility] [address] [place] [address] * Chlamydia / Gonorrhoeae Amplified RNA (05/25/2020 4:10 PM CDT) Source Swab, Cervix/Endoc ervix 05/26/2020 1:30 PM CDT [facility] Chlamydia trachomatis amplified RNA Negative Negative 05/26/2020 1:30 PM CDT [facility] Source Swab, Cervix/Endoc ervix 05/26/2020 1:30 PM CDT [facility] Neisseria gonorrhoeae amplified RNA Negative Negative 05/26/2020 1:30 PM CDT [facility] Varies (Cervix/Endocerv ix) 05/25/2020 4:10 PM CDT 05/25/2020 7:18 PM CDT Carlos Enrique Suazo M.D. LAB MICROBIOLOGY - G ENERAL ORDERABLES Performing Organization Address City/[facility]/ZIP Co de Phone Number [facility] [address] [place] [address], [facility] [place] [facility] [place] [address] [place] [id number] from Last 3 Months or Most Recently Relevant to Health Maintenance Care Teams Inverted Block Operator Relationship Specialty Start Date End Date Amy Fam M.D. [address] [place] [address] PCP - General Family Medicine 06/24/24
--- OUTSIDE RECORDS SUMMARY | 2024-07-23 07:46 | XMS_ITS | Encounter Summary ---
Author Organization [facility] Address [address] [place] [address] Care Team Providers Care Roving Carrier Name Role Phone Amy Fam M.D. Primary Care Provider [phone] Reason for Visit * Reason Comments Pre-op Exam * Appointment Request (Routine) - Closed Specialty Diagnoses / Procedures Referred By Boaz hamilton Referred To Contact Family Medicine Referral ID Status Reason Start Date Expiration Date Visits Re quested Visits Authorized [id number] Closed 06/24/2024 06/24/2025 1 1 Encounter Details Date Type Department Care Team (Late st Contact Info) Description 07/09/2024 1:30 PM CDT Office Visit Department of Family Medicine, [facility] [place], [place], [place] [address] [id number] Aubrey Munoz, GWENDOLYN, C.N.P. [address] [place] [phone] Preoperative Exam (Primary Dx) Social History Tobacco Use Types Packs/Day Years [...] week 02/09/2022 How often do you attend up health system or holiness services? Patient declined 02/09/2022 Do you belong to any clubs o r organizations such as restoration groups, unions, fraternal or athletic groups, or [...] Answer Date Recorded PHQ-2 Score 0 07/09/2024 [facility] - Occupational Stress [...] money to buy more. Never true 08/24/20 Within the past 12 months, t he [...] your living situation today? I have a [facility] place to live 08/24/2023 Education Answer Date Recorded What is the highest level of school you have completed or the highest degree you have received? Associate degree: academic program 04/21/2019 Sex and Gender Information Value Date Recorded Sex Assigned at Female 04/16/2018 2:29 PM CDT Gender Identity Female 04/16/2018 2:29 PM CDT Sexual Orientation Straight 04/16/2018 2: 29 PM CDT documented as of this encounter Last Filed Vital Signs Vital Sign Reading Time Taken Comments Blood Pressure 107/71 07/09/2024 1:00 PM CDT Pulse 58 07/09/2024 1:00 PM CDT Temperature - - Respiratory Rate - - Oxygen Saturation - - Inhaled Oxygen Concentration - - Weight 73.3 kg (161 lb 9.6 oz) 07/09/2024 1:00 P M CDT Height 164 cm (5' 4.57) 07/09/2024 1:00 PM CDT Body Mass Index 27.25 07/09/2024 1:00 PM CDT documented in this encounter Patient Instructions * Patient Instructions* Aubrey Munoz APRN, C.N.P. - 07/09/2024 1:30 PM CDT -do not eat or drink anything after midnight the day of the procedure. documented in this encounter Progress Notes * Aubrey Munoz APRN, C.N.P. - 07/09/2024 1:30 PM CDT SUBJECTIVE CHIEF COMPLAINT/REASON FOR VISIT Roxi Summers is a 29 y.o. female who presents for evaluation of Pre-op Exam. HISTORY OF PRESENT ILLNESS Roxi Summers is here for a preoperative exam prior to a tubal ligation on 07/23/[address] Harper at [facility]. There have been no prior complications or problems with anesthesia. There is no family medical history of problems with anesthesia or malignant hyperthermia. The patient has no known bleeding or clotting disorders. The patient has not been diagnosed with sleep apnea. The patient is not diabetic. There are no sensitivities to tape or latex. The patient does not use blood thinners. The patient is a and on smoker. REVIEW OF SYSTEMS General: No complaints of unintentional weight loss. No recent fevers. EENT: No sore throat or difficulty swallowing. No loose teeth. Neck: No problems with neck range of motion. Pulmonary: No shortness of breath, persistent cough, wheezing, or excessive snoring. Cardiac: No chest pain, rapid or irregular beats, or swelling in extremities. Gastrointestinal: No heartburn, nausea, vomiting, constipation, diarrhea, or abdominal pain. Genitourinary: No burning/pain with urination. Musculoskeletal: No muscle weakness, back pain, or joint pain. Skin: No skin rashes, skin sores, or excessive bruising. Neurological: No significant headaches, persistent weakness or numbness on one side of body, or recent falls. Endocrine: No excessive thirst or urination. Mental: No unmanaged depression or anxiety. MEDICAL HISTORY Patient Active Problem List Diagnosis Encounter For Supervision Of Other Normal Unspecified Trimester (HCC) SURGICAL HISTORY Past Surgical History: Procedure Laterality Date CYSTECTOMY OVARY - LAPAROSCOPY Left FAMILY HISTORY Family History Problem Relation Name Age of Onset Alcohol abuse Father Intellectual Disability Sister SOCIAL HISTORY Social History Tobacco Use Smoking status: Never Smokeless tobacco: Never Substance Use Topics Alcohol use: No Comment: Prior:occ CURRENT MEDICATIONS Current Outpatient Medications Medication Sig Dispense Refill vits96/iron fum/folic ( vitamin-ferrous fumarate-FA) 27 mg iron- 800 mcg per tablet Take 1 tablet by mouth daily. triamcinolone (KENALOG) 0.1 % cream Apply to affected area 1-2 times daily as needed for dyshidrotic eczema (Patient not taking: Reported on 07/09/2024) 60 g 1 No current facility-administered medications for this visit. ALLERGIES/CONTRAINDICATIONS No Known Allergies OBJECTIVE VITAL SIGNS BP 107/71 (BP Location: Right arm, Patient Position: Sitting, Cuff Size: Regular) Pulse (!) 58 Ht 164 cm Wt 73.3 kg Yes BMI 27.25 kg/m?? PHYSICAL EXAMINATION General: Patient is alert and oriented, in no acute distress. Capable of full communication withoutdifficulty. Patient is polite and cooperative. Appropriately dressed and normal hygiene. HEENT: Normocephalic, atraumatic. Pupils are equal, round and reactive to light. Auditory canals patent. Tympanic membranes are pearly pickering with adequate visualization of bony prominences. Nares are patent. Oropharynx without lesion of mucosa. Pharynx rises symmetrically without exudate. Dentition grossly intact. Neck: No lymphadenopathy. No thyroid enlargement or nodules. Neck is supple with normal range of motion. Cardiac: Regular rate and rhythm. No murmurs, gallops or rubs noted. No S3, no S4. Pulmonary: Regular rate and rhythm of respirations. Clear to auscultation bilaterally. No wheezing or crackles. No accessory muscles of respiration noted. Abdomen: Nontender to palpation. No hepatosplenomegaly. No mass. Normal bowel sounds in all 4 quadrants. Musculoskeletal: Normal range of motion in all extremities. Extremities: No neurovascular compromise. No cyanosis or clubbing. No edema. Skin: No rashes or wounds. No evidence of excessive bruising. Neurological: Cranial nerves 2-12 are grossly intact. Deep tendon reflexes are 2+ bilaterally in patellar tendons. Mental: Affect is normal. Thought process is congruent. Speech is fluent. ASSESSMENT / PLAN #1 Preoperative Exam Patient is, at present, medically stable for the above procedure. There are no contraindications toanesthesia. The patient is cleared up to and including general anesthesia. Known cardiopulmonary risk factors include none known. Functional capacity is >4 mets. The patient is aware that they need to be NPO after midnight the day of surgery. Further preoperative and postoperative recommendations have been given by the operating surgeon. Sleep Apnea: No known history of sleep apnea. Steroid Use Within the Past 12 Months: None. Diabetes: None. Bleeding Risk Factors: None. Anesthesia Reactions: None. Need for Prophylactic Antibiotics: None. Beta-Oscar: None. documented in this encounter Plan of Treatment Not on file documented as of this encounter Visit Diagnoses Diagnosis Preoperative Exam- Primary documented in this encounter Additional Health Concerns Assessment Noted Time PHQ-9 Depression Total Score: 0 03/13/20 22 8:53 AM CDT documented as of this encounter Care Teams Roving Carrier Relationship Specialty Start Date End Date Amy Fam M.D. [address] [phone] PCP - General Family Medicine 06/24/24 documented as of this encounter
[2024-07-23 08:10] LABS: Hemoglobin* 14.1 gm/dL (12.0-16.0)
[2024-07-23 08:13] LABS: Ur HCG Qualitative* Negative (Negative)
[2024-07-23] MEDS: SODIUM CHLORIDE 0.9 % (FLUSH) 10 ML SYRINGE IVF (08:19)
[2024-07-23] MEDS: LACTATED RINGERS 1000 ML 1,000 ML 100 ML IV ×2 (08:20→11:15)
--- NOTE | 2024-07-23 08:33 | W.PM.H&PU ---
History & Physical Update History & Physical Update H&P Reviewed and patient assessed: No changes noted H&P Updates: Continues to desire permanent sterilization. She is amenorrheic due to .
[2024-07-23] MEDS: BUPIVACAINE 0.5 %/EPI 1:200K 30 ML INJECTION (09:48)
--- NOTE | 2024-07-23 10:12 | PM.GYNPRLA ---
Procedure Pre-op/Post-op diagnoses: Pre-Op/Post-Op Diagnoses Operation Date: 07/23/24 09:15 <No data on this case meets the specified criteria> Procedure: Procedures Operation Date: 07/23/24 09:15 Actual Procedure Side Surgeon p Laparoscopic Bilateral Salpingectomy Bilateral Vanessa Harper MD [employer] Supervisor: Joan Paez Estimated blood loss (mL): 5 Anesthesia Type: General and Local Complications: none Specimen: other (Bilateral fallopian tubes ) Findings: Exam under anesthesia: Mons normal, clitoris normal, urethral meatus normal. Labia minora and majora normal in appearance bilaterally. Perineum and anus normal appearance. Vaginal introitus normal appearance. Bimanual exam reveals uterus to be soft, nontender, mobile, retroverted, of normal size and texture. No palpable adnexal masses or tenderness. On laparoscopy: Normal retroverted uterus, normal tubes and ovaries bilaterally. Normal liver and abdominal survey. Narrative: Preoperative diagnosis: Rema is a 29-year-old who desires permanent sterilization. Postoperative diagnosis: Same. Procedure: Laparoscopic bilateral salpingectomy Anesthesia: General endotracheal, Local Surgeon: Vanessa Harper MD Urine output: 150 mL clear urine IVF: 800 ml Procedure: Patient was taken to the operating room where general anesthetic was found to be adequate. She was placed in the dorsal lithotomy position and an exam under anesthesia was performed with findings stated above. She was then prepped and draped in a normal sterile manner. A Oswald catheter was then placed. A large sponge stick was placed into the vagina to be used as a manipulator was then placed. Attention was then turned to performing the laparoscopic portion of the procedure. All incisions were injected with 0.5% Marcaine prior to incision. A vertical 5 mm infraumbilical, incision, was made and a 5 mm trocar placed under direct visualization with the laparoscope. 5 mm camera was placed within the 5 mm Fios Kii trocar, and advanced under direct visualization through the anterior abdominal wall into the peritoneal cavity, while tenting up the anterior abdominal wall. The trocar was removed. The balloon was inflated, holding the port in place. Pneumoperitoneum was achieved. Survey of the abdomen and pelvis revealed the above-noted findings. Two additional port sites were created. The first was in the patient's left lower quadrant, just superomedial to the left ASIS. The second was a hand's breath superior to and slightly medial to the first. Each was infiltrated with small amount of Marcaine prior to incision. A 5 mm incision was made at each site, after assuring that large vessels were out of harm's way. A 5 mm Fios Kii port was inserted at each site, under direct visualization and without complication. The balloon on each of the 3 ports was inflated, holding each in place. The left fallopian tube was grasped with a sliding grasper. The left fallopian tube was removed from the broad ligament using the LigaSure dissecting forceps starting at the fimbriated end of the tube. Sequential pedicles were then formed to the level of the cornua. The tube was then removed at the cornua and removed from the abdomen through the left lower quadrant port. The right fallopian tube was removed in a similar manner. Excellent hemostasis was noted of all pedicles. The trocars were then removed under direct visualization. The CO2 gas was allowed to escape the infraumbilical port prior to its removal. All incisions were reapproximated using 4-0 Monocryl in a running subcuticular manner. Exofin was applied over each incision. The vaginal manipulator and Oswald catheter were removed. The patient tolerated this procedure well. Sponge, lap and instrument counts were correct x2 at the end of the procedure and the patient was taken to the recovery area in stable condition. Debrief performed and specimen reviewed.
--- NOTE | 2024-07-23 10:15 | W.ANESCHARGE ---
Anesthesia Charges Start Date/Time Anesthesia Start Date: 07/23/24 Anesthesia Start Time: 09:04 Stop Date/Time Anesthesia Stop Date: 07/23/24 Anesthesia Stop Time: 10:09
[2024-07-23] MEDS: fentaNYL 100 MCG/2 ML inj 50 MCG IVP (10:36)
--- NOTE | 2024-07-23 10:58 | W.ANESCHARGE ---
Anesthesia Charges Start Date/Time Anesthesia Start Date: 07/23/24 Anesthesia Start Time: 09:04 Stop Date/Time Anesthesia Stop Date: 07/23/24 Anesthesia Stop Time: 10:09
== END 2024-07-23 12:01 | disposition home or self-care (01) ==
PROVIDERS: Visit Provider Obstetrics & Gynecology
PROC: (CPT 58661; principal; 2024-07-23 09:00)
DX: Z30.2 Encounter for sterilization (principal)
CPT/HCPCS: 58661; 00840; 36415; 81025; 85018; 86850; 86900; 86901; 88302; J0330; J1100; J1630; J2250; J2405; J2704; J2710; J3010; J3490; J7120